=== PATIENT | female | born 1980 | race Caucasian/White ===

== ENCOUNTER 2023-03-14 10:09 | Emergency (ER) | payer OTHER ==
[2023-03-14 10:20] VITALS: BP 115/78; PULSE 74; RESP 18; TEMP 97; BMI 27.4
== END 2023-03-14 12:23 | disposition home or self-care (01) ==
LOC: JERFT 10:09 → JER 10:09 → JERFT 12:23
DX: M25.572 Pain in left ankle and joints of left foot (principal)
CPT/HCPCS: 93971-TC; 99284-25